=== PATIENT | female | born 1955 | race Caucasian/White ===

== ENCOUNTER 2017-12-28 22:14 | Emergency (ER) | payer OTHER ==
[~2017-12-28] VITALS: Ht 162.6 cm; Wt 117.9 kg
[~2017-12-28 22:14] MED LIST: AMLO5 PO; CYCL10 PO; Cymbalta60 MG; DULO60; FLUO20 PO; GABA100; GABA300; HYDROCODON-ACE1 EAC4 PO; LISI20; LISI20 PO; METO50ER PO; METR500; MINO100 PO; NAPR500 PO; OMEP20ER PO; PRAV10 PO; TOPI50 PO; UBID100 PO; VERAPAMIL 180 MG
[2017-12-28 23:10] LABS: BASOPHILS ABSOLUTE AUTO 0.03 K/mm3 (0.00-0.23); BASOPHILS PERCENT AUTO 0 % (0-2); EOSINOPHILS ABSOLUTE AUTO 0.17 K/mm3 (0.00-0.68); EOSINOPHILS PERCENT AUTO 2 % (0-6); Hematocrit 37.6 % (33.0-51.0); Hemoglobin 11.9 g/dL (11.5-16.0); IMMATURE GRAN ABSOLUTE AUTO 0.09 K/mm3 (0.00-0.10); IMMATURE GRAN PERCENT AUTO 1 % (0-1); LYMPHOCYTES ABSOLUTE AUTO 3.64 K/mm3 (0.84-5.20); LYMPHOCYTES PERCENT AUTO 38 % (21-46); MONOCYTES ABSOLUTE AUTO 0.83 K/mm3 (0.16-1.47); MONOCYTES PERCENT AUTO 9 % (4-13); Mean Corpuscular HGB 28.2 pg (26.0-34.0); Mean Corpuscular HGB Conc 31.6 g/dL (31.5-36.5); Mean Corpuscular Volume 89 fL (80-100); Mean Platelet Volume 9.3 fL (9.1-12.4); NEUTROPHILS ABSOLUTE AUTO 4.91 K/mm3 (1.96-9.15); NEUTROPHILS PERCENT AUTO 51 % (41-73); Platelet Count 379 K/mm3 (150-400); RDW Coefficient Variation 12.8 % (11.7-14.2); RDW Standard Deviation 41.6 fL (35.1-46.3); Red Blood Cell Count 4.22 M/mm3 (3.80-5.20); White Blood Cell Count 9.67 K/mm3 (4.00-11.30)
[2017-12-28 23:30] LABS: Alanine Aminotransfer (ALT/SGP 23 U/L (12-78); Albumin, Blood 3.3 g/dL (3.4-5.0); Albumin/Globulin Ratio 0.7 (0.8-1.8); Alk Phos 66 U/L (50-136); Anion Gap 10 mmol/L (6-16); Aspartate Aminotrans (AST/SGOT 17 U/L (12-37); Bilirubin, Total 0.1 mg/dL (0.1-1.0); Blood Urea Nitrogen 25 mg/dL (8-24); Bun/Creatinine Ratio 24.5 (12.0-20.0); CO2, Blood 25 mmol/L (21-32); Calcium, Blood 9.2 mg/dL (8.5-10.1); Chloride, Blood 106 mmol/L (98-108); Creatinine, Blood 1.02 mg/dL (0.40-1.00); Glomerular Filtration Rate 58 (60-); Glucose, Blood 106 mg/dL (70-99); Potassium, Blood 4.5 mmol/L (3.5-5.5); Sodium, Blood 141 mmol/L (136-145); Total Protein, Blood 8.3 g/dL (6.4-8.2); Troponin I <0.015 ng/mL (0.000-0.040)
[2017-12-28] MEDS ORDERED: UBID10 (23:30)
[2017-12-28] MEDS ORDERED: ASPI81CH PO (23:30)
[2017-12-28] MEDS ORDERED: Hair, Skin & N1 EACH PO (23:30)
[2018-01-01] MEDS ORDERED: Vibramycin100 MG PO (10:42)
== END 2017-12-29 01:50 | disposition home or self-care (01) ==
LOC: ER 22:14
PROVIDERS: Emergency Medicine
DX: R07.9 Chest pain, unspecified (principal); I10 Essential (primary) hypertension; Z88.0 Allergy status to penicillin; Z88.8 Allergy status to other drugs, medicaments and biological substances; Z79.899 Other long term (current) drug therapy; Z79.891 Long term (current) use of opiate analgesic; Z79.82 Long term (current) use of aspirin
CPT/HCPCS: 36415; 71046; 80053; 82947; 83605; 83880; 84484; 85025; 87040; 87077; 87147; 87186; 93005; 93010; 96360; 99284; J7030

== ENCOUNTER → 2019-06-12 | Outpatient (CLI) | payer MEDICARE ==
[~2019-06-12] MED LIST changes: +ASPI81CH PO; +Hair, Skin & N1 EACH PO; +UBID10; +Vibramycin100 MG PO
== END | disposition home or self-care (01) ==
LOC: LAB SHORT 14:54 → LAB 14:54
DX: L02.411 Cutaneous abscess of right axilla (principal)
CPT/HCPCS: 87070; 87075; 87077; 87147; 87186; 87205

== ENCOUNTER 2022-04-20 14:00 | Observation (INO) | payer MEDICARE, OTHER ==
[~2022-04-20] VITALS: Ht 160 cm; Wt 120.2 kg
[~2022-04-20 14:00] MED LIST changes: +IMODIUM A-D2 M1 PO; +Norco 7.5-3251 EACH PO; +ONDA4ODT SL; +OXYACE7.5T PO; +Pepcid40 MG PO; +TAMS.4ER PO
[2022-04-20 15:35] LABS: BASOPHILS ABSOLUTE AUTO 0.05 K/mm3 (0.00-0.23); BASOPHILS PERCENT AUTO 1 % (0-2); EOSINOPHILS ABSOLUTE AUTO 0.07 K/mm3 (0.00-0.68); EOSINOPHILS PERCENT AUTO 1 % (0-6); Hematocrit 47.7 % (33.0-51.0); Hemoglobin 15.4 g/dL (11.5-16.0); IMMATURE GRAN ABSOLUTE AUTO 0.02 K/mm3 (0.00-0.10); IMMATURE GRAN PERCENT AUTO 0 % (0-1); LYMPHOCYTES ABSOLUTE AUTO 2.47 K/mm3 (0.84-5.20); LYMPHOCYTES PERCENT AUTO 29 % (21-46); MONOCYTES ABSOLUTE AUTO 0.56 K/mm3 (0.16-1.47); MONOCYTES PERCENT AUTO 7 % (4-13); Mean Corpuscular HGB 28.4 pg (26.0-34.0); Mean Corpuscular HGB Conc 32.3 g/dL (31.5-36.5); Mean Corpuscular Volume 88 fL (80-100); Mean Platelet Volume 10.4 fL (9.1-12.4); NEUTROPHILS PERCENT AUTO 63 % (41-73); Platelet Count 277 K/mm3 (150-400); RDW Coefficient Variation 13.9 % (11.7-14.2); RDW Standard Deviation 44.6 fL (35.1-46.3); Red Blood Cell Count 5.42 M/mm3 (3.80-5.20); White Blood Cell Count 8.57 K/mm3 (4.00-11.30)
[2022-04-20 15:54] LABS: Albumin, Blood 3.9 g/dL (3.4-5.0); Albumin/Globulin Ratio 0.8 (0.8-1.8); Bilirubin, Total 0.5 mg/dL (0.1-1.0); Bun/Creatinine Ratio 16.5 (12.0-20.0); Calcium, Blood 9.9 mg/dL (8.5-10.1); Creatinine, Blood 0.85 mg/dL (0.40-1.00); Globulin, Blood 5.1 g/dL (2.2-4.0); Potassium, Blood 3.3 mmol/L (3.5-5.5)
[2022-04-20] MEDS ORDERED: HYDCHL25 PO (18:14)
[2022-04-20] MEDS ORDERED: CYCL10 PO (18:15)
[2022-04-20 18:37] LABS: Source, Urine Straight Cath
[2022-04-20 18:40] LABS: Appearance, Urine Clear (Clear); Blood, Urine Neg (Neg); Color, Urine Yellow (P-Yellow); Glucose Qualitative, Urine Neg (Neg); Ketones, Urine 4+ (Neg); Leukocyte Esterase, Urine 1+ (Neg); Nitrite, Urine Neg (Neg); Protein, Urine 2+ (Neg); Urobilinogen, Urine 2+ (Normal)
[2022-04-20 18:48] LABS: Bilirubin, Urine 1+ (Neg)
[2022-04-20 18:49] LABS: Bacteria Mod /hpf; Hyaline Casts 0-2 /lpf (0-2); Mucus Mod (0-Heavy); Red Blood Cells, Urine 0-2 /hpf (0-2); Squamous Epithelial Cells Few /hpf (Few)
[2022-04-20 19:37] LABS: Influenza A, PCR NEGATIVE (NEGATIVE); Influenza B, PCR NEGATIVE (NEGATIVE); Resp Syncytial Virus, PCR NEGATIVE (NEGATIVE); SARS-Cov-2 (COVID-19) PCR, MMC NEGATIVE (NEGATIVE)
[2022-04-20] MEDS ORDERED: Vitamin D1000 UNI1 PO (23:10)
[2022-04-20] MEDS ORDERED: B12-FOLIC ACID1 EACH PO (23:12)
--- NOTE | 2022-04-21 04:40 | NUR ---
SHIFT SUMMARY PT ER ADMIT THIS SHIFT ABD PAIN AND N/V. PT REPORTS THAT THE PAIN STARTED ABOUT THREE WEEKS AGO. PT REPORTS THAT SHE HAS LOST ABOUT 25 LBS D/T VOMITTING AND NOT BEING ABLE TO HOLD ANYTHING DOWN. WORK UP REVEALED BILIARY COLIC, PLAN IS FOR GALLBLADDER REMOVAL TODAY. PT HAS BEEN NPO SINCE MIDNIGHT. PAIN HAS BEEN MINIMAL BUT PT COMPLAINS OF NAUSEA. MEDICATED PER EMAR. POTASSIUM REPLACED THIS SHIFT. NO ACUTE CHANGES OVERNIGHT, BED IN LOWEST POSITION, CALL LIGHT WITHIN REACH.
[2022-04-21 05:08] LABS: BASOPHILS ABSOLUTE AUTO 0.05 K/mm3 (0.00-0.23); BASOPHILS PERCENT AUTO 1 % (0-2); EOSINOPHILS ABSOLUTE AUTO 0.06 K/mm3 (0.00-0.68); EOSINOPHILS PERCENT AUTO 1 % (0-6); Hematocrit 40.5 % (33.0-51.0); Hemoglobin 13.3 g/dL (11.5-16.0); IMMATURE GRAN ABSOLUTE AUTO 0.02 K/mm3 (0.00-0.10); IMMATURE GRAN PERCENT AUTO 0 % (0-1); LYMPHOCYTES ABSOLUTE AUTO 2.07 K/mm3 (0.84-5.20); LYMPHOCYTES PERCENT AUTO 20 % (21-46); MONOCYTES ABSOLUTE AUTO 0.76 K/mm3 (0.16-1.47); MONOCYTES PERCENT AUTO 7 % (4-13); Mean Corpuscular HGB 28.6 pg (26.0-34.0); Mean Corpuscular HGB Conc 32.8 g/dL (31.5-36.5); Mean Corpuscular Volume 87 fL (80-100); Mean Platelet Volume 10.2 fL (9.1-12.4); NEUTROPHILS ABSOLUTE AUTO 7.49 K/mm3 (1.96-9.15); NEUTROPHILS PERCENT AUTO 72 % (41-73); Platelet Count 224 K/mm3 (150-400); RDW Coefficient Variation 13.9 % (11.7-14.2); RDW Standard Deviation 44.4 fL (35.1-46.3); Red Blood Cell Count 4.65 M/mm3 (3.80-5.20); White Blood Cell Count 10.45 K/mm3 (4.00-11.30)
[2022-04-21 05:27] LABS: Albumin, Blood 3.1 g/dL (3.4-5.0); Albumin/Globulin Ratio 0.7 (0.8-1.8); Bilirubin, Total 0.6 mg/dL (0.1-1.0); Bun/Creatinine Ratio 14.7 (12.0-20.0); Calcium, Blood 8.3 mg/dL (8.5-10.1); Creatinine, Blood 0.75 mg/dL (0.40-1.00); Globulin, Blood 4.2 g/dL (2.2-4.0); Potassium, Blood 3.6 mmol/L (3.5-5.5); Total Protein, Blood 7.3 g/dL (6.4-8.2)
--- NOTE | 2022-04-21 10:11 | NUR ---
CT: THIS RN RECEIVED A CALL SHORTLY AFTER PT WENT TO CT. IMAGING STAFF THOUGHT PT MAY HAVE HAD A REACTION TO IV CONTRAST. CITY ENGINEER, MARIA G WENT TO CT TO CHECK ON PT. PT BACK TO ROOM AT ABOUT 1002. MARIA G AND REINFORCED STEEL PLACING SUPERVISOR REPORTED AT BEDSIDE THAT PT COMPLAINED OF CHEST PAIN, SOB AND WAS GIVEN BENADRYAL WHILE IN IMAGING. TECH DID NOT NOTICE ANY RASHES ON PT'S SKIN. PT TRANSFERED BACK TO BED FROM [facility], PT A/O, SOMEWHAT DROWSY, ANSWERS QUESTIONS. PT REPORTED THAT CP HAS GONE AWAY AND THAT SHE NO LONGER HAD SOB, VSS. RAMP BOSS CALLED AT 1007 AND TECH RAAD REPORTED NO CHANGE IN TELE, PT IS CURRENTLY NSR, HR 73. PT ASSESSED AND NO RASH NOTED. DR. BAILEY MADE AWARE OF THE ABOVE AT 1010. NO NEW ORDERS AT THIS TIME.
--- NOTE | 2022-04-21 14:06 | NUR ---
PT TO IMAGING AT 1400
--- NOTE | 2022-04-21 15:38 | NUR ---
PT TO OR AT ABOUT 1510
--- NOTE | 2022-04-21 16:43 | NUR ---
04/21/22 1643 Judy Garcia PRIOR TO PREPPING PATIENTS ABDOMEN, NOTED REDNESS IN FOLDS OF ABDOMEN NEAR KOSTA/GROIN, NOTIFIED.
--- NOTE | 2022-04-21 19:16 | NUR ---
POST OP: REPORT RECEIVED FROM CREATIVE SERVICES SPECIALIST TAMI. PT TO UNIT AT ABOUT 1830. PT IS A/O, VSS, SURGICAL SITES WNL. PT DENIES PAIN, N/V AT THIS TIME. TELE APPLIED, PER [employer] SYSTEM ADMINISTRATOR NSR IN THE 60'S. DURING BEDSIDE REPORT PT ABLE TO WALK TO BATHROOM AND VOIDED. REPORT PASSED TO NOC NANCY JEFFERY.
--- NOTE | 2022-04-22 05:11 | NUR ---
SHIFT SUMMARY POD LAP JUDY SHE HAS DONE WELL OVERNIGHT, PT STILL HAVING SOME PAIN AND SORENESS, BUT REPORTS THAT OVERALL SHE IS FEELING BETTER. MEDICATED FOR PAIN AND NAUSEA PER EMAR. PT TOLERATING PO INTAKE. LAP SITES X4 C/D/I. PT HAS STARTED AMBULATING INDEPDENTLY IN ROOM AND IS STEADY ON HER FEET. PLAN IS FOR DC TODAY. BED IN LOWEST POSITION, CALL LIGHT WITHIN REACH.
--- NOTE | 2022-04-22 10:29 | NUR ---
DR CHARLES IN TO SEE PT.
[2022-04-22] MEDS ORDERED: Norco 5-325 Ta1 EACH PO (10:53)
[2022-04-22] MEDS ORDERED: ONDA4ODT MM (10:53)
--- NOTE | 2022-04-22 11:39 | NUR ---
DISCHARGING DC'D IVS, CATHETERS INTACT. REMOVED TELE AND RETURNED UNIT. REVIEWED DC INSTRUCTIONS W/PT AND SPOUSE; VERBALIZED UNDERSTANDING. PT GETTING DRESSED AT THIS TIME.
--- NOTE | 2022-04-22 11:42 | NUR ---
DISCHARGED PT LEFT UNIT IN WC W/POSSESSIONS AND DC INSTRUCTIONS IN HAND, ACCOMPANIED BY SPOUSE.
== END 2022-04-22 12:57 | disposition home or self-care (01) ==
LOC: ER 14:00 → SURS 21:02
PROVIDERS: Emergency Medicine; Student in an Organized Health Care Education/Training Program; Surgery; ADMIT Internal Medicine
PROC: 0FT44ZZ Resection of Gallbladder, Percutaneous Endoscopic Approach (ICD-10-PCS; principal; 2022-04-21 15:15)
PROC: BF10YZZ Fluoroscopy of Bile Ducts using Other Contrast (ICD-10-PCS; principal; 2022-04-21 15:15)
DX: K80.12 Calculus of gallbladder with acute and chronic cholecystitis without obstruction (principal); I10 Essential (primary) hypertension; E87.6 Hypokalemia; E86.0 Dehydration; G43.909 Migraine, unspecified, not intractable, without status migrainosus; G47.33 Obstructive sleep apnea (adult) (pediatric); E66.01 Morbid (severe) obesity due to excess calories; Z20.822 Contact with and (suspected) exposure to COVID-19; Z68.41 Body mass index [BMI] 40.0-44.9, adult; Z88.0 Allergy status to penicillin; Z88.6 Allergy status to analgesic agent; Z88.5 Allergy status to narcotic agent
CPT/HCPCS: 0241U; 36415; 74177; 74240; 74300; 76705; 80053; 81001; 83690; 83880; 84484; 85025; 87086; 88304; 93005; 93010; 96361; 96365; 96366; 96375; 96376; 99285-25; A9270; C1894; G0378; J0360; J0696; J1100; J1200; J2405; J2704; J2765; J2795; J3010; J3480; J7030; J7120; Q9967

== ENCOUNTER 2022-10-22 08:05 | Day surgery (SDC) | payer MEDICARE, OTHER ==
[~2022-10-22] VITALS: Ht 160 cm; Wt 109.0 kg
[~2022-10-22 08:05] MED LIST changes: +B12-FOLIC ACID1 EACH PO; +GABA300 PO; +HYDCHL25 PO; +MULVITA PO; +Norco 5-325 Ta1 EACH PO; +ONDA4ODT MM; +RIZATRIPTAN10 MG SL; +Vitamin D1000 UNI1 PO
[2022-10-22] MEDS ORDERED: ACET500 PO (10:00)
[2022-10-22] MEDS ORDERED: METO50ER PO (10:01)
--- NOTE | 2022-10-22 10:29 | NUR ---
Ambulatory in Day Surgery History, Chart, Medications and Allergies reviewed before start of procedure. Pre-Op teaching done. Pt verbalizes understanding. Patient States Post-Procedure ride home has been arranged.
--- NOTE | 2022-10-22 11:14 | NUR ---
EDUCATED/PT DEMONSTRATED ON INCENTIVE SPIROMETRY.
--- NOTE | 2022-10-22 13:44 | NUR ---
REPORT RECEIVED FROM LELAND CRUZ. VSS. PT RESTING COMFORTABLY IN BED. PT REPORTS 2/10 PAIN TO SURGICAL SITE. PT DENIES NAUSEA AT THIS TIME. PT REQUESTING PO FLUIDS AND IS TOLERATING THEM WELL. PT DRESSING C/D/I WITHOUT DRAINAGE, REDNESS, OR SWELLING NOTED. PT ABLE TO REPOSITION SELF IN BED.
--- NOTE | 2022-10-22 14:41 | NUR ---
Patient up to Ambulate independently. Gait steady AND CONSISTENT WITH BASELINE. Discharge instructions reviewed with patient. Patient verbalizes understanding. Copy given to patient to take home. Dressing to procedure site clean, dry, intact with no visible drainage, swelling, erythema or bruising noted. Patient States Post-Procedure ride home has been arranged. Discharged via wheelchair to private car for ride home. PT BELONGINGS RETURNED TO PT.
== END 2022-10-23 22:51 | disposition home or self-care (01) ==
LOC: NM 08:05 → ORSCMMR 08:06 → NM 09:00
PROVIDERS: Surgery
PROC: 07B50ZZ Excision of Right Axillary Lymphatic, Open Approach (ICD-10-PCS; principal; 2022-10-22 11:00)
PROC: 0HBT0ZZ Excision of Right Breast, Open Approach (ICD-10-PCS; principal; 2022-10-22 11:00)
DX: C50.411 Malignant neoplasm of upper-outer quadrant of right female breast (principal); E78.00 Pure hypercholesterolemia, unspecified; I10 Essential (primary) hypertension; G47.33 Obstructive sleep apnea (adult) (pediatric); Z17.0 Estrogen receptor positive status [ER+]; Z79.899 Other long term (current) drug therapy; Z88.8 Allergy status to other drugs, medicaments and biological substances; Z88.0 Allergy status to penicillin
CPT/HCPCS: 38792; 76098; A9270; A9520; J0690; J1100; J1885; J2370; J2405; J2704; J2795; J3010; J7120; Q9968

== ENCOUNTER 2022-12-24 06:44 | Day surgery (SDC) | payer MEDICARE, OTHER ==
[2022-12-24] VITALS (12 sets, daily range): BP systolic 72–121; BP diastolic 52–80
[~2022-12-24] VITALS: Ht 190.5 cm; Wt 116.1 kg
[~2022-12-24 06:44] MED LIST changes: +ACET500 PO
--- NOTE | 2022-12-24 07:59 | NUR ---
Ambulatory in Day SurgeryBair Paws warming gown applied. History, Chart, Medications and Allergies reviewed before start of procedure.Lungs clear T/O to Auscultation. Patient confirms NPO status and agrees with scheduled surgery. Pre-Op teaching done. Pt verbalizes understanding. Patient States Post-Procedure ride home has been arranged. Patient reports completing Chlorhexadine shower X2 prior to admission to hospital.
--- NOTE | 2022-12-24 12:20 | NUR ---
DISCHARGE NOTE PT A&OX4, VSS, NO NAUSEA. PT TOLERATING POP FLUIDS AND FOODS. PT ABLE TO DRESS SELF INDEPENDENTLY C RN IN ROOM. TRISTON DRAIN SECURED TO BREAST BINDER AND EDUCATION GIVEN C DRAIN CHART FOR DOCUMENTATION. Discharge instructions reviewed with patient. Patient verbalizes understanding. Copy given to patient to take home. Dressing to procedure site clean, dry, intact with no visible drainage, swelling, erythema or bruising noted. Discharged via wheelchair to private car for ride home.
== END 2022-12-24 12:40 | disposition home or self-care (01) ==
LOC: ORSCMMR 06:44 → ORD 10:00 → ORSCMMR 11:00
PROVIDERS: Surgery
PROC: 07T50ZZ Resection of Right Axillary Lymphatic, Open Approach (ICD-10-PCS; principal; 2022-12-24 08:30)
DX: C50.911 Malignant neoplasm of unspecified site of right female breast (principal); Z17.0 Estrogen receptor positive status [ER+]; D36.0 Benign neoplasm of lymph nodes; I10 Essential (primary) hypertension; E78.00 Pure hypercholesterolemia, unspecified; E66.01 Morbid (severe) obesity due to excess calories; Z68.41 Body mass index [BMI] 40.0-44.9, adult; Z79.899 Other long term (current) drug therapy
CPT/HCPCS: 88307; A9270; J0690; J2250; J2704; J2795; J3010; J7120

== ENCOUNTER → 2023-02-01 | Outpatient (CLI) | payer MEDICARE, OTHER | LOC: LAB 13:53 → LAB SHORT 13:53 | DX: L02.411 Cutaneous abscess of right axilla (principal) | CPT/HCPCS: 87070; 87075; 87077; 87147; 87186; 87205 ==

== ENCOUNTER → 2023-06-09 | Outpatient (CLI) | payer MEDICARE, OTHER ==
[2023-06-09 10:22] LABS: Creatinine, Blood 1.23 mg/dL (0.40-1.00); Potassium, Blood 3.6 mmol/L (3.5-5.5)
== END ==
LOC: LAB SHORT 09:15 → LAB 09:15
PROVIDERS: Internal Medicine Hematology & Oncology
DX: C50.919 Malignant neoplasm of unspecified site of unspecified female breast (principal)
CPT/HCPCS: 80048